=== PATIENT | female | born 1990 | race Caucasian/White ===

== ENCOUNTER 2024-07-30 06:06 | Day surgery (SDC) | payer OTHER ==
[~2024-07-30] VITALS: Ht 165.1 cm; Wt 73.5 kg
[~2024-07-30 06:06] MED LIST: CYCL-707 PO; IBUP200C28 PO; VITA100093 PO
[2024-07-30] MEDS ORDERED: propofoL 200 MG/20 ML VIAL As Ordered ONE (06:29)
[2024-07-30] MEDS ORDERED: ROCURONIUM BROMIDE 50MG/5ML VIAL As Ordered ONE (06:29)
[2024-07-30] MEDS ORDERED: LIDOCAINE 2% 100MG/5ML SDV (FOR ANES.) As Ordered ONE (06:30)
[2024-07-30] MEDS ORDERED: SUGAMMADEX SODIUM 500 MG/5 ML VIAL (BRIDION) As Ordered ONE (06:30)
[2024-07-30] MEDS ORDERED: GLYCOPYRROLATE INJ 0.2 MG/ML 2 ML VIAL As Ordered ONE (06:30)
[2024-07-30] MEDS ORDERED: KETOROLAC 60MG 2ML VIAL As Ordered ONE (06:31)
[2024-07-30] MEDS ORDERED: METOCLOPRAMIDE INJ 10MG/2ML VIAL As Ordered ONE (06:31)
[2024-07-30] MEDS ORDERED: ONDANSETRON 4MG 2ML VIAL As Ordered ONE (06:31)
[2024-07-30] MEDS ORDERED: MIDAZOLAM INJ 2MG/2ML VIAL As Ordered ONE (06:33)
[2024-07-30] MEDS ORDERED: fentaNYL 100 MCG/2 ML INJECTION As Ordered ONE (06:33)
[2024-07-30] MEDS ORDERED: LR 1,000 ML IV SCH ×3 (06:40→11:30)
[2024-07-30] MEDS ORDERED: ACETAMINOPHEN 1000MG/100ML IV BAG As Ordered ONE (06:44)
[2024-07-30] MEDS ORDERED: fentaNYL 100 MCG/2 ML INJECTION IV PRN ×3 (07:00→11:30)
[2024-07-30] MEDS ORDERED: MIDAZOLAM INJ 2MG/2ML VIAL IV PRN (07:00)
[2024-07-30] MEDS: SCOPOLAMINE 1MG TRANSDERMAL PATCH TOP ONE (07:11)
[2024-07-30] MEDS ORDERED: ONDANSETRON 4MG 2ML VIAL IV PRN ×2 (07:15→11:30)
[2024-07-30] MEDS: fentaNYL 100 MCG/2 ML INJECTION IV PRN (09:05)
[2024-07-30] MEDS: MIDAZOLAM INJ 2MG/2ML VIAL IV PRN (09:05)
[2024-07-30] MEDS: LIDOCAINE 1% SDV 5ML VIAL PN ONE (09:08)
[2024-07-30] MEDS: dexAMETHasone 10MG/1ML VIAL PRES.FREE PN ONE (09:08)
[2024-07-30] MEDS: ROPIvacaine 0.5% 30ML VIAL PN ONE (09:08)
[2024-07-30] MEDS: ceFAZolin SOD 2 GM in IV 1 EA IV ONE (09:44)
[2024-07-30] MEDS: TRANEXAMIC ACID 100 MG/ML 10ML VIAL IV ONE (09:45)
[2024-07-30] MEDS ORDERED: PHENYLephrine 500MCG 5ML (100MCG/ML) SYRINGE As Ordered ONE (09:58)
[2024-07-30] MEDS: EPINEPHrine 1MG/ML INJ 30ML MD-VIAL As Ordered ONE (10:22)
[2024-07-30] MEDS: LIDOCAINE 1% SDV 30ML VIAL As Ordered ONE (10:55)
[2024-07-30] MEDS: VANCOMYCIN 500MG/10ML VIAL As Ordered ONE (10:55)
[2024-07-30] MEDS: TRANEXAMIC ACID 100 MG/ML 10ML VIAL As Ordered ONE (10:55)
[2024-07-30] MEDS ORDERED: oxyCODONE 5MG TAB PO PRN (11:30)
[2024-07-30] MEDS ORDERED: HYDROMORPHONE HCL 0.5 MG/ 0.5 ML SYRINGE IV PRN (11:30)
[2024-07-30 12:48] VITALS: BP 133/75; TEMP 97.7; O2SAT 98
== END 2024-07-30 12:57 | disposition home or self-care (01) ==
LOC: M SDC 06:06
PROVIDERS: ATTEND Orthopaedic Surgery
DX: M75.51 Bursitis of right shoulder (principal); M75.41 Impingement syndrome of right shoulder; M65.911 Unspecified synovitis and tenosynovitis, right shoulder; W00.0XXA Fall on same level due to ice and snow, initial encounter; Y93.9 Activity, unspecified; Y92.9 Unspecified place or not applicable
CPT/HCPCS: 29826; 81025; J0131; J0171; J0690; J1100; J1596; J1885; J2250; J2371; J2405; J2765; J3010

== ENCOUNTER 2024-09-29 09:24 | Day surgery (SDC) | payer OTHER ==
[~2024-09-29] VITALS: Ht 165.1 cm; Wt 71.7 kg
[2024-09-29] MEDS ORDERED: LR 1,000 ML IV SCH (09:55)
[2024-09-29] MEDS ORDERED: MIDAZOLAM INJ 2MG/2ML VIAL IV PRN (12:00)
[2024-09-29] MEDS ORDERED: fentaNYL 100 MCG/2 ML INJECTION IV PRN (12:00)
[2024-09-29] MEDS ORDERED: MEPIVACAINE HCL 2% 20 ML VIAL PN ONE (12:00)
[2024-09-29] MEDS ORDERED: LIDOCAINE 1% SDV 5ML VIAL PN ONE (12:00)
[2024-09-29] MEDS ORDERED: ROPIvacaine 0.5% 30ML VIAL INJ ONE (12:15)
[2024-09-29] MEDS ORDERED: MIDAZOLAM 5MG/ML 1ML VIAL As Ordered ONE (12:41)
[2024-09-29 13:22] VITALS: BP 134/85; TEMP 98.2; O2SAT 98
== END 2024-09-29 13:50 | disposition home or self-care (01) ==
LOC: M SDC 09:24
PROVIDERS: ATTEND Orthopaedic Surgery
DX: M75.01 Adhesive capsulitis of right shoulder (principal); Z79.899 Other long term (current) drug therapy
CPT/HCPCS: 23700; 81025; J2250